=== PATIENT | male | born 1995 | race Caucasian/White ===

== ENCOUNTER 2023-01-08 06:56 | Emergency (ER) | payer OTHER ==
[~2023-01-08] VITALS: Ht 175 cm; Wt 100.0 kg
[2023-01-08] MEDS ORDERED: ESTR2TAB3 PO (07:18)
[2023-01-08] MEDS ORDERED: SPIR50TA4 PO (07:18)
[2023-01-08] MEDS ORDERED: ONDANSETRON 4 MG (ZOFRAN) ORAL DISSOLVE TAB SL STA (07:40)
[2023-01-08] MEDS ORDERED: LIDOCAINE 2% VISCOUS 15 ML UDC PO ONE (07:45)
[2023-01-08] MEDS ORDERED: ANTACID SUSP 30 ML UDC (MYLANTA) PO ONE (07:45)
--- NOTE | 2023-01-08 07:47 | ED Abdominal Pain ---
General Chief Complaint: Abdominal/GI Problems Stated Complaint: ABD SWELLING,NAUSEA,DIARRHEA Nursing Triage Note: PT STATES ABD PAIN AND SWELLING, STARTED ABOUT 2 MONTHS AGO AND WAS ON SOME MEDS, WOKE THIS MORNING WITH DIARRHEA, STOMACH ACID BUT NO VOMITING Source of Information: Patient Exam Limitations: No Limitations History of Present Illness Date Seen by Provider: Jan 08, 2023 Time Seen by Provider: 07:26 Initial Comments This 27-year-old gentleman presents to the emergency room with complaints of abdominal bloating for a few days followed by increased belching and upper abdominal discomfort this morning. Symptoms seem to be worse at night and when lying flat. He describes some acid reflux with waterbrash as well. He had a similar episode in October. He reports being seen at [facility] urgent care and treated. There is record of pantoprazole and prednisone filled in August, but no medications filled in October according to record on file. There is a prescription for estradiol filled about a month ago. He has some mild nausea without vomiting. He had a bout of diarrhea this morning but otherwise has not had constipation or diarrhea. His episode over the past few days is stronger than the episode he experienced in October. Vital signs are normal at this time and he is afebrile. He does not have a local primary care provider. He did not take any medications this morning. He denies any significant chronic health problems. He describes the focus of his discomfort in the left upper quadrant just below the costal margin. Allergies and Home Medications Allergies Coded Allergies: No Known Drug Allergies (Verified Allergy, Mild, 05/14/09) Patient Home Medication List Home Medication List Reviewed: Yes Estradiol (Estradiol Tablet) 2 Mg Tablet, 2 MG PO DAILY, (Reported) Entered as Reported by: ADRIANA GARCÍA on 01/08/23717 Last Action: New Order Omeprazole (Omeprazole) 20 Mg Tablet.dr 20 MG PO BID Prescribed by: CAIO PETE on 01/08/23 08 Spironolactone (Spironolactone) 50 Mg Tablet, 50 MG PO, (Reported) Entered as Reported by: ADRIANA GARCÍA on 01/08/23717 Last Action: New Order Review of Systems Review of Systems Constitutional: no symptoms reported EENTM: No Symptoms Reported Respiratory: No Symptoms Reported Cardiovascular: No Symptoms Reported Gastrointestinal: See HPI Genitourinary: No Symptoms Reported Musculoskeletal: no symptoms reported Skin: no symptoms reported Psychiatric/Neurological: No Symptoms Reported Endocrine: No Symptoms Reported Hematologic/Lymphatic: No Symptoms Reported Past Mpiqdyx-Tcyuvc-Myrcgh Hx Patient Social History Tobacco Use?: No Substance use?: No Alcohol Use?: No Immunizations Up To Date Second COVID19 Vaccination Dhaval: YES Past Medical History Surgery/Hospitalization HX: DENTAL SURGERY, CHILDHOOD ASTHMA Surgeries: Yes (Lamar teeth) Respiratory: Yes Asthma (Childhood) Cardiac: No Neurological: No 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 oz. kg; 32.00 BMI Method: General Appearance: WD/WN, no apparent distress HEENT: normal ENT inspection Neck: normal inspection Respiratory: lungs clear, normal breath sounds, no respiratory distress Cardiovascular: regular rate, rhythm, no edema, no murmur Gastrointestinal: normal bowel sounds, soft; No distended; tenderness (Slight discomfort with no significant tenderness to palpation or percussion) Extremities: normal inspection, no pedal edema Neurologic/Psychiatric: no motor/sensory deficits, alert, normal mood/affect, oriented x 3 Skin: normal color, warm/dry Progress/Results/Core Measures Results/Orders My Orders Orders - CAIO MONTESINOS MD Ondansetron Oral Dissolve Tab (Zofran (01/08/23 07:40) Lidocaine 2% Viscous 15 Ml (Xylocaine Vi (01/08/23 07:45) Antacid Suspension (Mylanta Suspension (01/08/23 07:45) Medications Given in ED Current Medications Medications Dose Ordered Sig/Kwesi Route Start Time Stop Time Status Last Admin Dose Admin Al Hydrox/Mg Hydrox/Simethicone 30 ml ONCE ONCE PO 01/08/23 07:45 01/08/23 07:46 DC 01/08/23 07:59 30 ML Lidocaine HCl 15 ml ONCE ONCE PO 4/30/23 07:45 01/08/23 07:46 DC 01/08/23 07:59 15 ML Vital Signs/I&O 01/08/23 07:09 Temp 35.2 Pulse 77 Resp 18 B/P (MAP) 135/84 (101) Pulse Ox 98 O2 Delivery Room Air Blood Pressure Mean: 101 Progress Progress Note #1: Time: 07:47 Progress Note Patient was interviewed and examined. Symptoms and exam seem to be consistent with gastritis and/or acid reflux. A trial of Zofran and GI cocktail is being administered. We will reassess after that. Progress Note #2: Time: 08:46 Progress Note Patient reports a 70% improvement after treatment with GI cocktail which would suggest gastritis/esophagitis as the source of pain. He is being treated accordingly. See discharge instructions for discussion. Departure Impression Primary Impression: GERD (gastroesophageal reflux disease) Qualified Codes: K21.00 - Gastro-esophageal reflux disease with esophagitis, without bleeding Additional Impression: Upper abdominal pain Disposition: 01 HOME, SELF-CARE Condition: Improved Departure-Patient Inst. Decision time for Depature: 08:45 Referrals: [facility] (PCP/Family) Primary Care Physician Patient Instructions: Abdominal Pain, Adult ED, Acid Reflux and GERD in Adults (DC), Gastritis ED Add. Discharge Instructions: The nature of your symptoms suggest you have gastritis and/or esophagitis. Take omeprazole 20 mg twice daily for the next couple of months. If you have rebound symptoms, you need to follow-up with a primary care provider or surgeon to discuss endoscopy (scoping of your stomach and esophagus). Avoid the following: Eating large meals, eating close to bedtime, chocolate, caffeine, carbonation, citrus fruits and juices, tomato products, alcohol, tobacco, mints, spicy foods, fatty/greasy foods, NSAID medications such as ibuprofen or naproxen, and anything else you know irritates your stomach. For acute treatment of pain you may use Tums or a generic equivalent. You may also use Tylenol (acetaminophen) up to 1000 mg every 6 hours as needed, but avoid the NSAID medications. Return to care if you have worsening symptoms despite following these instructio ns. Follow-up with a primary care provider within the next few weeks. All discharge instructions reviewed with patient and/or family. Voiced understanding. Scripts Omeprazole (Omeprazole) 20 Mg Tablet. 20 MG PO BID, #60 TAB 2 Refills Prov: CAIO MONTESINOS MD 01/08/23 CAIO MONTESINOS MD Jan 08, 2023 07:47
[2023-01-08] MEDS ORDERED: OMEP20TA56 PO (08:50)
[2023-01-08 09:28] VITALS: BP 135/84
== END 2023-01-08 09:28 | disposition home or self-care (01) ==
LOC: EDUNIT# 06:56 → ER 07:03
DX: K21.9 Gastro-esophageal reflux disease without esophagitis (principal)
CPT/HCPCS: 99283